=== PATIENT | female | born 1990 | race American Indian/Alaskan Native ===

== ENCOUNTER 2021-02-05 09:40 | Outpatient (CLI) | payer OTHER ==
[2021-02-05] MEDS ORDERED: PRENATAL TABLE1 EAC1 PO (12:50)
== END 2021-02-05 09:54 | disposition home or self-care (01) ==
LOC: NST 09:40
PROVIDERS: ATTEND Obstetrics & Gynecology Maternal & Fetal Medicine
DX: Z34.83 Encounter for supervision of other normal pregnancy, third trimester (principal)

== ENCOUNTER 2021-02-05 11:15 | Inpatient (IN) | payer OTHER ==
[~2021-02-05] VITALS: Ht 157.5 cm; Wt 83.5 kg
[2021-02-05] MEDS ORDERED: PRENATAL TABLE1 EAC1 PO (12:50)
== END 2021-02-07 13:31 | disposition home or self-care (01) | DRG 807 ==
LOC: LDR 11:15 → SURG-SUITE 11:15
PROVIDERS: ADMIT Obstetrics & Gynecology Maternal & Fetal Medicine; ATTEND Obstetrics & Gynecology Maternal & Fetal Medicine
PROC: 10E0XZZ Delivery of Products of Conception, External Approach (ICD-10-PCS; principal; 2021-02-05)
PROC: 0HQ9XZZ Repair Perineum Skin, External Approach (ICD-10-PCS; 2021-02-05)
PROC: 3E033VJ Introduction of Other Hormone into Peripheral Vein, Percutaneous Approach (ICD-10-PCS; 2021-02-05)
PROC: 4A1HXFZ Monitoring of Products of Conception, Cardiac Rhythm, External Approach (ICD-10-PCS; 2021-02-05)
DX: O13.4 Gestational [pregnancy-induced] hypertension without significant proteinuria, complicating childbirth (principal); Z37.0 Single live birth; Z3A.36 36 weeks gestation of pregnancy; Z20.822 Contact with and (suspected) exposure to COVID-19

== ENCOUNTER → 2022-11-07 08:00 | Outpatient (CLI) | payer OTHER ==
[~2022-11-07 08:00] MED LIST: AVIANE-28 TABL1 EACH PO; PRENATAL TABLE1 EAC1 PO
== END | disposition home or self-care (01) ==
LOC: ADM 07:15 → LAB 08:00 → CIR.AMB 11-13 07:15 → EDSTATUS 11-13 07:15
PROVIDERS: ATTEND Obstetrics & Gynecology
DX: Z30.2 Encounter for sterilization (principal); Z64.1 Problems related to multiparity